=== PATIENT | male | born 1965 | race Caucasian/White ===

== ENCOUNTER → 2017-03-15 | Outpatient (CLI) | payer OTHER ==
--- NOTE | 2017-03-15 09:38 | PCVCIMAG ---
APPROVED REPORT Study performed: 03/15/2017 08:10:15 EXAM: Comprehensive 2D, Doppler, and color-flow Echocardiogram Patient Location: Echo lab Other Information Study Quality: Adequate Risk Factors: Cardiac Risk Factors: HTN Indications Chest Pressure Hypertension/HDD 2D Dimensions IVSd: 9.26 (7-11mm)LVOT Diam: 24.36 (18-24mm) LVDd: 44.13 mm PWd: 10.46 (7-11mm)Ascending Ao: 37.44 (22-36mm) LVDs: 25.19 (25-40mm) Left Atrium: 38.59 (27-40mm) Aortic Root: 28.54 mm LV Single Plane 4CH: 57.98 % LV Single Plane 2CH: 55.34 %Joe's LVEF: 56.66 % Biplane EF: 57.1 % Volumes Left Atrial Volume (Systole) Single Plane 4CH: 35.59 mLSingle Plane 2CH: 25.43 mL LA ESV Index: 14.00 mL/m2 Aortic Valve AoV Peak Ray.: 1.00 m/s AO Peak Gr.: 4.01 mmHgLVOT Max P.19 mmHg LVOT Max V: 0.89 m/s NILE Vmax: 4.16 cm2 Mitral Valve E/A Ratio: 1.1 MV Decel. Time: 221.67 ms MV E Max Ray.: 0.72 m/s MV A Ray.: 0.68 m/s IVRT: 110.73 ms TDI E/Lateral E': 0.08E/Medial E': 0.07 Medial E' Ray.: 10.70 m/s Lateral E' Ray.: 8.50 m/s Pulmonary Valve PV Peak Gr.: 2.10 mmHg Pulmonary Vein P Vein S: 0.39 m/sP Vein A: 0.30 m/s P Vein D: 0.52 m/sP Vein A Dur.: 72.7 msec P Vein S/D Ratio: 0.75 Left Ventricle Left ventricle is grossly normal size. There is normal LV segmental wall motion. There is normal left ventricular wall thickness. Left ventricular systolic function is normal. The left ventricular ejection fraction is within the normal range. LVEF is 55%. Right Ventricle The right ventricle is normal size. The right ventricular systolic function is normal. Atria The left atrium size is normal. The right atrium size is normal. Aortic Valve The aortic valve is normal in structure. No aortic regurgitation is present. There is no aortic valvular stenosis. Mitral Valve The mitral valve is normal in structure. There is no mitral valve regurgitation noted. No evidence of mitral valve stenosis. Tricuspid Valve The tricuspid valve is normal in structure. There is no tricuspid valve regurgitation noted. Pulmonic Valve The pulmonary valve is normal in structure. There is no pulmonic valvular regurgitation. Great Vessels The aortic root is normal in size. IVC is normal in size and collapses with >50% inspiration Pericardium There is no pericardial effusion. <Conclusion> Left ventricle is grossly normal size. Left ventricular systolic function is normal. The left ventricular ejection fraction is within the normal range. The right ventricle is normal size. The left atrium size is normal. The right atrium size is normal. The aortic valve is normal in structure. The mitral valve is normal in structure. There is no pericardial effusion.
--- NOTE | 2017-03-19 15:09 | PCVCIMAG ---
APPROVED REPORT Exam: Nuclear Stress Test Indication: Chest discomfort Patient Location: Out-Patient Stress Nurse: Corie Glasgow RN , Farzaneh Kolb RN [place] Tech:Rafat Landry NMTCB Ht: 5 ft 10 in Wt: 215 lbs BSA: 2.15 m2 HR: 72 bpm BP: 141/91 mmHg BMI: 30.4 Rhythm: NSR Medical History Medical History: Age, , HTN Medications: Lisinopril, Prilosec Allergies: No known drug allergies Pretest Chest Pain Characteristics: Chest pressure 10/17 Exercise History: Physically active NM EXAM: Myocardial Perfusion REST/STRESS Imaging Protocol: Rest Tc-99m/Stress Tc-99m 1 day Resting Data Rest SPECT myocardial perfusion imaging was performed in supine position 45 minutes following the intravenous injection of 12 mCi of Tc-99m Sestamibi. Time of rest injection: 849 Date: 03/15/2017 Exercise Stress At peak stress, the patient was injected intravenously with 35.2mCi of Tc-99m Sestamibi. Time of stress injection: 1015 Date: 03/15/2017 Heart Rate at time of stress injection: 160 bpm. Patient continued to exercise for 11.5 minute(s). The images were gated to evaluate regional wall motion and calculate left ventricular ejection fraction. Study Data Post stress, the left ventricular ejection was 73%.. Perfusion There is a medium area of mildly reduced uptake in the entire segment of the inferior wall which is minibly reversible. This area thickens and moves normally and is most consistent with attenuation artifact. Wall Motion Normal left ventricular wall motion. Nuclear Conclusion 1. LIKELY LOW RISK STUDY Interpreted by: Jessie Charles MD Electronically Approved: 03/19/2017 15:08:41 Stress Test Details Stress Test: Exercise stress testing was performed using a Jacob protocol. HR Resting HR: 72 bpmMax Heart Rate (APMHR): 167 bpm Max HR Achieved: 160 bpmTarget HR (85% APMHR): 141 bpm % of APMHR: 95 Recovery HR: 98 bpm BP Resting BP: 141/91 mmHg Max BP: 162/80 mmHg Recovery BP: 123/58 mmHg ECG Resting ECG: Sinus Rhythm Stress ECG: Sinus Tachycardia Recovery ECG: Sinus Rhythm Recovery ST Deviation: 1.8 mm Recovery Arrhythmia: None Clinical Reason for Termination: Maximal effort Stress Symptoms: Dyspnea, Fatigue Exercise duration: 11.5 min sec Exercise capacity: 13.4 METs Angina Score: Non-Limiting Stress ECG Conclusion 1. SUBJECTIVELY NEGATIVE FOR ISCHEMIA 2. ELECTROCARDIOGRAPHICALLY NEGATIVE FOR ISCHEMIA 3. ADEQUATE FUNCTIONAL CAPACITY <Conclusion> 1. SUBJECTIVELY NEGATIVE FOR ISCHEMIA 2. ELECTROCARDIOGRAPHICALLY NEGATIVE FOR ISCHEMIA 3. ADEQUATE FUNCTIONAL CAPACITY
== END | disposition home or self-care (01) ==
LOC: PCVCIMAG 07:55
PROVIDERS: ATTEND Internal Medicine
DX: R07.89 Other chest pain (principal); I10 Essential (primary) hypertension
CPT/HCPCS: 78452; 93017; 93306; A9500